=== PATIENT | female | born 1960 | race Two or more races ===

== ENCOUNTER → 2017-07-23 | Outpatient (CLI) | payer BC ==
[2016-12-16 08:28] VITALS: BP 114/71
[2017-07-23 16:13] LABS: HEMOGLOBIN A1C 5.7 % (4.5-6.2)
== END ==
LOC: LAB 15:34
PROVIDERS: ATTEND Obstetrics & Gynecology Obstetrics
DX: S33.6XXA Sprain of sacroiliac joint, initial encounter (principal); X58.XXXA Exposure to other specified factors, initial encounter; G60.3 Idiopathic progressive neuropathy
CPT/HCPCS: 36415; 82607; 82746; 83036; 84425

== ENCOUNTER → 2017-08-20 | Outpatient (CLI) | payer BC ==
[2016-12-16 08:28] VITALS: BP 114/71
== END ==
LOC: RT 10:18
PROVIDERS: ATTEND Obstetrics & Gynecology Obstetrics
DX: G60.3 Idiopathic progressive neuropathy (principal)
CPT/HCPCS: 95910

== ENCOUNTER → 2017-09-04 | Outpatient (CLI) | payer BC ==
[2016-12-16 08:28] VITALS: BP 114/71
== END ==
LOC: RT 09:45
PROVIDERS: ATTEND Obstetrics & Gynecology Obstetrics
DX: R07.89 Other chest pain (principal)
CPT/HCPCS: 93005; 93010

== ENCOUNTER → 2017-11-04 | Outpatient (CLI) | payer BC ==
[2016-12-16 08:28] VITALS: BP 114/71
--- NOTE | 2017-11-05 16:21 | MG ---
HISTORY: SCREENING Comparison: September 23, 2016 and August 22, 2015 FINDINGS: Bilateral CC and MLO projections of the right and left breast were obtained. Scattered fibroglandula r tissue is seen to be present without significant interval change. No suspicious architectural dist ortion, mass or clustered microcalcifications can be observed to suggest malignancy. No skin thicken ing or nipple retraction is appreciated. No pathological lymphadenopathy can be identified. Benign- appearing calcifications are noted within the right and left breast. IMPRESSION: NO RADIOGRAPHIC EVIDENCE OF MALIGNANCY. ACR CATEGORY 2 - benign findings. FOLLOW-UP EXAM 1 YEAR. Diagnostic CAD was utilized and reviewed. * 0 (ZERO) - ASSESSMENT INCOMPLETE; ADDITIONAL IMAGING IS NEEDED. * 1/1 (ONE) - NEGATIVE. * 2/II (TWO) - BENIGN FINDINGS. * 3/III (THREE) - PROBABLY BENIGN FINDING; SHORT INTERVAL FOLLOW-UP SUGGESTED. * 4/IV (FOUR) - SUSPICIOUS ABNORMALITY; BIOPSY SHOULD BE CONSIDERED. * 5/V - HIGHLY SUSPICIOUS OF MALIGNANCY; BIOPSY SHOULD BE PERFORMED. A NEGATIVE X-RAY REPORT SHOULD NOT DELAY BIOPSY IF A DOMINANT OR CLINICALLY SUSPICIOUS MASS IS PRESENT; 4 TO 8 PERCENT OF CANCERS ARE NOT IDENTIFIED BY X-RAY. A NEGA TIVE REPORT MAY REINFORCE THE CLINICAL IMPRESSION. ADENOSIS AND DENSE BREASTS MAY OBSCURE AN UNDERLY ING NEOPLASM. Reported By:
== END ==
LOC: RAD 13:38
PROVIDERS: ATTEND Obstetrics & Gynecology Obstetrics
DX: Z12.31 Encounter for screening mammogram for malignant neoplasm of breast (principal)
CPT/HCPCS: 77067